=== PATIENT | female | born 1975 | race American Indian/Alaskan Native ===

== ENCOUNTER 2016-08-20 08:20 | Emergency (ER) | payer OTHER ==
[2016-08-20 08:47] VITALS: TEMP 98.2
[2016-08-20 09:10] LABS: BASO % 0.4 % (0.0-2.0); EOS # 0.1 K/uL (0.0-0.7); HEMATOCRIT 36.3 % (34.0-47.0); LYMPH # 2.4 K/uL (1.0-4.3); LYMPH % 47.3 % (20.0-40.0); MEAN CELL VOLUME 79.5 fL (81.0-99.0); MEAN CORPUSCULAR HEMOGLOBIN 26.5 pg (27.0-31.0); MEAN CORPUSCULAR HGB CONC 33.4 g/dL (33.0-37.0); MEAN PLATELET VOLUME 8.6 fL (7.2-11.7); MONO # 0.5 K/uL (0.0-0.8); MONO % 8.8 % (0.0-10.0); NRBC % 0.1 % (0.0-2.0); RED CELL DISTRIBUTION WIDTH 13.8 % (11.5-14.5); WHITE BLOOD COUNT 5.1 K/uL (4.8-10.8)
--- NOTE | 2016-08-20 09:16 | C.PDOC ---
History Of Present Illness 41 y/o female presents to the ED c/o sudden onset of palpitations this morning. Pt was driving when she felt her heart racing and a pressure sensation in the chest. EMS was called, and symptoms had already improved prior to EMS arrival. Patient given PO ASA and SL nitro in the field. Symptoms resolved prior to ED arrival. Patient denies cough, fever, abdominal pain, SOB. She has no PMHx, and denies recent surgeries/immobilization, OCP use, DVT/PE history in family. Time Seen by Provider: 08/20/16 08:25 Chief Complaint (Nursing): Palpitations History Per: Patient History/Exam Limitations: no limitations Onset/Duration Of Symptoms: Mins Current Symptoms Are (Timing): Gone Severity: Mild Recent travel outside of the [place]: No Past Medical History Reviewed: Historical Data, Nursing Documentation, Vital Signs Vital Signs: Last Vital Signs Temp 98.2 F 08/20/16 10:31 Pulse 60 08/20/16 10:31 Resp 18 08/20/16 10:31 BP 145/99 H 08/20/16 10:31 Pulse Ox 99 08/20/16 10:31 - Medical History PMH: No Chronic Diseases Surgical History: Tonsillectomy Family History: States: No Known Family Hx Denies: SD, CAD, Diabetes - Social History Hx Alcohol Use: No Hx Substance Use: No - Immunization History Hx Tetanus Toxoid Vaccination: No Hx Influenza Vaccination: No Hx Pneumococcal Vaccination: No Review Of Systems Except As Marked, All Systems Reviewed And Found Negative. Constitutional: Negative for: Fever, Chills Cardiovascular: Positive for: Chest Pain, Palpitations Respiratory: Negative for: Cough, Shortness of Breath Gastrointestinal: Negative for: Nausea, Vomiting, Abdominal Pain Physical Exam - Physical Exam Appears: Well, Non-toxic, No Acute Distress Skin: Warm, Dry, No Rash Head: Normacephalic Oral Mucosa: Moist Neck: Supple Cardiovascular: Rhythm Regular Respiratory: Normal Breath Sounds, No Rales, No Rhonchi, No Wheezing Gastrointestinal/Abdominal: Normal Exam, Bowel Sounds, Soft, No Tenderness, No Guarding, No Rebound Extremity: Normal ROM, No Pedal Edema, No Swelling Extremity: Bilateral: Atraumatic Neurological/Psych: Oriented x3 ED Course And Treatment - Laboratory Results Result Diagrams: 08/20/16 08:56 08/20/16 08:56 ECG: Interpreted By Me, Viewed By Me (NSR 64 bpm, normal axis, no acute ST/T wave changes) ECG Interpretation: Normal O2 Sat by Pulse Oximetry: 99 (room air) Pulse Ox Interpretation: Normal - Radiology CXR: Interpreted by Me, Viewed By Me (no infiltrates/effusions) Progress Note: Plan: Blood work, EKG, CXR, UA ordered and reviewed. Patient given IV NS bolus. Reevaluation Time: 10:25 Reassessment Condition: Improved (On reassessment, patient is resting comfortably, asymptomatic at this time. Blood work, EKG, CXR unremarkable. Patient is comfortable being discharged, was instructed to follow up with cardiology within 1 week. She underdstands she should return to ED if symptoms worsen.) Disposition Counseled Patient/Family Regarding: Studies Performed, Diagnosis, Need For Followup - Disposition Referrals: [facility] [Outside] Edin Araiza MD [Staff Provider] - Disposition: HOME/ ROUTINE Disposition Time: 10:25 Condition: STABLE Additional Instructions: FOLLOW UP WITH CARDIOLOGY WITHIN 1 WEEK RETURN TO ER IF YOU HAVE ANY CONCERNING SYMPTOMS Instructions: Palpitations (ED) Print Language: KHMER - POA Present On Arrival: None - Clinical Impression Clinical Impression: Palpitations - Scribe Statement The provider has reviewed the documentation as recorded by the Edmar Pimentel Provider Attestation: All medical record entries made by the Raheemibkal were at my direction and personally dictated by me. I have reviewed the chart and agree that the record accurately reflects my personal performance of the history, physical exam, medical decision making, and the department course for this patient. I have also personally directed, reviewed, and agree with the discharge instructions and disposition.
[2016-08-20 09:18] LABS: CHLORIDE 102 mmol/L (98-107); SODIUM 138 mmol/L (132-148)
[2016-08-20 09:19] LABS: POTASSIUM 3.9 mmol/L (3.6-5.2)
[2016-08-20 09:21] LABS: ALB/GLOB RATIO 1.3 (1.0-2.1); ALKALINE PHOSPHATASE 40 U/L (38-126); ALT/SGPT 20 U/L (9-52); AST/SGOT 22 U/L (14-36); BILIRUBIN,TOTAL 0.5 mg/dL (0.2-1.3); BLOOD UREA NITROGEN 11 mg/dL (7-17); CARBON DIOXIDE 26 mmol/L (22-30); GFR AFRICAN-AMERICAN > 60; TOTAL PROTEIN 6.4 g/dL (6.3-8.3)
[2016-08-20 09:22] LABS: CALCIUM 8.1 mg/dl (8.6-10.4); GLUCOSE,RANDOM 105 mg/dL (65-105)
--- NOTE | 2016-08-20 09:24 | RAD ---
PROCEDURE: CHEST RADIOGRAPH, 1 VIEW HISTORY: cp, palpitations COMPARISON: None available. FINDINGS: LUNGS: Mild venous congestion. Patchy bibasilar airspace opacities. Suggestion of a small left pleural effusion. PLEURA: As above. CARDIOVASCULAR: Cardiomegaly. OSSEOUS STRUCTURES: No significant abnormalities. VISUALIZED UPPER ABDOMEN: Normal. OTHER FINDINGS: None. IMPRESSION: Mild venous congestion. Patchy bibasilar airspace opacities. Suggestion of a small left pleural effusion.
[2016-08-20 09:40] LABS: RBC URINE 10 /hpf (0-3); URINE BILIRUBIN NEGATIVE (NEGATIVE); URINE BLOOD 2+ (NEGATIVE); URINE COLOR Yellow (YELLOW); URINE GLUCOSE (UA) NORMAL (Normal); URINE KETONE NEGATIVE (NEGATIVE); URINE LEUKOCYTE ESTERASE NEG Leu/uL (Negative); URINE PROTEIN NEGATIVE (NEGATIVE); URINE UROBILINOGEN NORMAL mg/dL (0.2-1.0); WBC URINE < 1 /hpf (0-5)
[2016-08-20 09:51] LABS: THYROID STIMULATING HORMONE 1.17 mIU/L (0.46-4.68)
[2016-08-20] MEDS ORDERED: Naproxen 550 mg Tab PO STA (10:16)
[2016-08-20 10:18] VITALS: O2SAT 99
[2016-08-20 10:35] VITALS: BP 145/99; PULSE 60; RESP 18
[2016-08-20] MEDS ORDERED: Naproxen 550 mg Tab PO ONE (10:38)
--- NOTE | 2016-08-28 01:44 | CARD ---
APPROVED REPORT EKG Measurement Heart [id number] <Conclusion> Normal sinus rhythm Normal ECG
== END 2016-08-20 10:41 | disposition home or self-care (01) ==
LOC: C.ER 08:20
DX: R00.2 Palpitations (principal)